=== PATIENT | female | born 1975 | race African-American/Black ===

== ENCOUNTER 2025-04-02 09:36 | Emergency (ER) | payer SELFPAY ==
[2025-04-02] MEDS ORDERED: Sodium Chloride 0.9% 10 ML Syringe FLUSH PRN (10:20)
[2025-04-02 10:31] LABS: BASOPHILS ABSOLUTE AUTO 0.1 K/mm3 (0.0-0.2); BASOPHILS PERCENT AUTO 0.5 % (0.0-1.0); EOSINOPHILS ABSOLUTE AUTO 0.0 K/mm3 (0.0-0.4); EOSINOPHILS PERCENT AUTO 0.3 % (0.0-6.0); IMMATURE GRAN ABSOLUTE AUTO 0.03 K/mm3 (0.00-0.05); IMMATURE GRAN PERCENT AUTO 0.3 % (0.0-0.4); LYMPHOCYTES ABSOLUTE AUTO 2.1 K/mm3 (1.0-4.8); LYMPHOCYTES PERCENT AUTO 21.5 % (24.0-44.0); MEAN PLATELET VOLUME 12.4 fl (9.4-12.3); MONOCYTES ABSOLUTE AUTO 0.5 K/mm3 (0.0-0.8); MONOCYTES PERCENT AUTO 5.5 % (0.0-8.0); NEUTROPHILS ABSOLUTE AUTO 7.1 K/mm3 (1.8-7.7); NEUTROPHILS PERCENT AUTO 71.9 % (41.0-71.0); NRBC ABSOLUTE 0.00 (0.00-0.02); NRBC PERCENT 0.0 % (0.0-0.2); PLATELET COUNT,PLT 244 K/mm3 (150-400); RED BLOOD CELL COUNT 4.72 M/mm3 (4.10-5.30); WHITE BLOOD CELL COUNT,WBC 9.83 K/mm3 (3.9-11.3)
[2025-04-02] MEDS: Ketorolac 30 MG/ML SDV IVPUSH ONE (10:39)
[2025-04-02] MEDS: diphenhydrAMINE 50 MG/ML SDV IVPUSH ONE (10:42)
[2025-04-02 10:44] LABS: A/G RATIO 1.0 (1-2); ALANINE AMINOTRANSFERASE,ALT 60.0 U/L (14-59); ASPARTATE AMNIOTRANSFERASE,AST 47.0 U/L (15-37); BILIRUBIN TOTAL 0.4 mg/dL (0.2-1.0); BLOOD UREA NITROGEN,BUN 15.0 mg/dL (7-18); CARBON DIOXIDE,CO2 26.0 mEq/L (21-32); CHLORIDE,CL 103.0 mEq/L (98-107); CREATININE 1.1 mg/dL (0.55-1.02); EST CRCL DRUG DOSING (CG) 49.49 mL/min; ESTIMATED GFR 60.0 mL/min (>60); GLUCOSE RANDOM 115.0 mg/dL (70-99); POTASSIUM,K 3.2 mEq/L (3.5-5.1); PROTEIN TOTAL,TP 9.0 g/dl (6.4-8.2); SODIUM,NA 141.0 mEq/L (136-145)
[2025-04-02 10:48] LABS: TROPONIN I HIGH SENSITIVITY 95.0 pg/mL (<=51)
[2025-04-02] MEDS: Heparin Sodium 5,000 Units/ML Vial IVPUSH ONE (14:23)
[2025-04-02] MEDS: Heparin Sodium/D5W 250 ML IV SCH (14:27)
== END 2025-04-02 14:59 ==
LOC: JD.ED 09:36
DX: I21.4 Non-ST elevation (NSTEMI) myocardial infarction (principal); I10 Essential (primary) hypertension
CPT/HCPCS: 36415; 70450; 71045; 80053; 83735; 84484; 85025; 85730; 93005; 96361; 96365; 96375; 99285; A9270; J1200; J1644; J1885; J2765; J7030; 93010